=== PATIENT | female | born 1950 | race Caucasian/White ===

== ENCOUNTER 2018-03-03 00:51 | Emergency (ER) | payer OTHER ==
[~2018-03-03] VITALS: Ht 162.6 cm; Wt 66.2 kg
[~2018-03-03 00:51] MED LIST: ALBUTEROL0.09 MG/A2 IH; ASPIR 8181 MG PO; BAY PO; CELEXA10 MG PO; CELEXA20 MG PO; CLINDAMYCIN HC300 MG PO; EEMT PO; FLOMAX0.4 MG PO; GABAPENTIN PO; GLU5 PO; GUAIFENESI100 MG/52 PO; LAC PO; LEVAQUIN750 MG PO; LEVOTHYROXIN0.025 M2 PO; LEVOTHYROXIN0.125 M2 PO; MAVIK4 MG PO; MEDDP PO; MENEST0.625 MG PO; METFORMIN ER500 M1 PO; METFORMIN HCL1000 MG PO; METFORMIN HCL850 MG PO; METFORMIN500 M1 PO; NOR10T PO; TARKA PO; VERAPAMIL HYDR240 MG PO; VITAMIN D32000 I2 PO
[2018-03-03 00:59] VITALS: Ht 162.6 cm; Wt 66.2 kg
[2018-03-03 02:39] LABS: UA SPECIFIC GRAVITY >=1.030 (1.005-1.035); microscopic required? YES; urine erythrocyte 3+ (NEGATIVE)
[2018-03-03 02:43] LABS: CALCIUM 10.6 mg/dL (8.5-10.1); CARBON DIOXIDE 27.6 mmol/L (21-32); CREATININE SERUM 1.2 mg/dL (0.6-1.0); POTASSIUM SERUM 3.6 mmol/L (3.5-5.1)
[2018-03-03 02:48] LABS: ALBUMIN 4.3 g/dL (3.4-5.0); BILIRUBIN TOTAL 0.54 mg/dL (0.20-1.00)
[2018-03-03 03:07] LABS: BASOPHIL % 0.7 % (0-2); PLATELET COUNT 271 x10^3mcL (130-400); RED CELL DISTRIBUTION WIDTH 12.9 % (11.5-14.5)
[2018-03-03 03:46] VITALS: BP 140/82
== END 2018-03-03 03:46 | disposition home or self-care (01) ==
LOC: ED 00:51
PROVIDERS: Emergency Medicine
DX: N13.2 Hydronephrosis with renal and ureteral calculous obstruction (principal); I10 Essential (primary) hypertension; E11.9 Type 2 diabetes mellitus without complications
CPT/HCPCS: J1885; Q0092

== ENCOUNTER 2018-10-31 18:59 | Emergency (ER) | payer OTHER ==
[~2018-10-31] VITALS: Ht 162.6 cm; Wt 63.2 kg
[2018-10-31 20:08] VITALS: Ht 162.6 cm; Wt 63.2 kg
[2018-10-31 21:29] VITALS: BP 143/91
== END 2018-10-31 21:29 | disposition home or self-care (01) ==
LOC: ED 18:59
DX: K08.89 Other specified disorders of teeth and supporting structures (principal); R51 Headache; R11.0 Nausea; I10 Essential (primary) hypertension; E11.9 Type 2 diabetes mellitus without complications; F32.9 Major depressive disorder, single episode, unspecified; Z90.89 Acquired absence of other organs; Z90.710 Acquired absence of both cervix and uterus
CPT/HCPCS: J1885

== ENCOUNTER 2020-04-23 13:09 | Emergency (ER) | payer OTHER ==
[~2020-04-23] VITALS: Ht 162.6 cm; Wt 63.0 kg
[2020-04-23 13:17] VITALS: Ht 162.6 cm; Wt 63.0 kg
[2020-04-23 14:28] VITALS: BP 161/76
== END 2020-04-23 14:28 | disposition home or self-care (01) ==
LOC: ED 13:09
DX: S09.8XXA Other specified injuries of head, initial encounter (principal); W17.89XA Other fall from one level to another, initial encounter; Y93.89 Activity, other specified; Y92.89 Other specified places as the place of occurrence of the external cause; Y99.8 Other external cause status
CPT/HCPCS: 82962; 99406